=== PATIENT | female | born 1980 | race Caucasian/White ===

== ENCOUNTER 2016-08-17 09:33 | Inpatient (IN) | payer OTHER ==
[~2016-08-17] VITALS: Ht 162.6 cm; Wt 84.4 kg
[2016-08-17 10:41] VITALS: BP 139/77
[2016-08-17 11:05] LABS: ABSOLUTE BASOPHIL COUNT 0 /CUMM (0.0-0.2); ABSOLUTE EOSINOPHIL COUNT 0 /CUMM (0.0-0.7); ABSOLUTE GRANULOCYTE CT 6.6 /CUMM (1.4-6.5); ABSOLUTE LYMPH COUNT 1.4 /CUMM (1.2-3.4); ABSOLUTE MONOCYTE COUNT 0.6 /CUMM (0.10-0.60); BASOPHIL % 0.1 % (0.0-2.0); EOSINOPHIL % 0.5 % (0-5); GRANULOCYTE % 77.1 % (42.2-75.2); HEMATOCRIT 34.7 % (37-47); MEAN CORPUSCULAR HGB CONC 33.8 G/DL (33.0-37.0); MEAN CORPUSCULAR VOLUME 76.9 FL (81.0-99.0); MEAN PLATELET VOLUME 8.1 FL (7.4-10.4); PLATELET COUNT 224 /CUMM (130-400); RBC DISTRIBUTION WIDTH 15.9 % (11.5-14.5); RED BLOOD CELL CT 4.52 /CUMM (4.20-5.40); WHITE BLOOD CELL COUNT 8.6 /CUMM (4.8-10.8)
[2016-08-18 01:18] LABS: ABSOLUTE BASOPHIL COUNT 0 /CUMM (0.0-0.2); ABSOLUTE EOSINOPHIL COUNT 0 /CUMM (0.0-0.7); ABSOLUTE GRANULOCYTE CT 5.5 /CUMM (1.4-6.5); ABSOLUTE LYMPH COUNT 1.8 /CUMM (1.2-3.4); ABSOLUTE MONOCYTE COUNT 0.6 /CUMM (0.10-0.60); BASOPHIL % 0.4 % (0.0-2.0); EOSINOPHIL % 0.5 % (0-5); GRANULOCYTE % 69.3 % (42.2-75.2); HEMATOCRIT 36.1 % (37-47); MEAN CORPUSCULAR HGB 25.4 PG (27.0-31.0); MEAN CORPUSCULAR HGB CONC 32.9 G/DL (33.0-37.0); MEAN CORPUSCULAR VOLUME 77.2 FL (81.0-99.0); PLATELET COUNT 231 /CUMM (130-400); RBC DISTRIBUTION WIDTH 15.8 % (11.5-14.5); RED BLOOD CELL CT 4.68 /CUMM (4.20-5.40)
--- NOTE | 2016-08-18 10:29 | History & Physical ---
General Information and HPI MD Statement: I have seen and personally examined AMIE LAWSON and documented this H&P. The patient is a 35 year old female at [37] weeks and [6] days gestation who presented with a chief complaint of [PROM]. 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 EENTM: Reports: no symptoms. Cardiovascular: Reports: no symptoms. Respiratory: Reports: no symptoms. GI: Reports: no symptoms. Genitourinary: Reports: no symptoms. Musculoskeletal: Reports: no symptoms. Skin: Reports: no symptoms. Neurological/Psychological: Reports: no symptoms. Hematologic/Endocrine: Reports: no symptoms. Immunologic/Allergic: Reports: no symptoms. All Other Systems: Reviewed and Negative Exam & Diagnostic Data Last 24 Hrs of Vital Signs/I&O Vital Signs Date Time Temp Pulse Resp B/P B/P Pulse O2 O2 Flow FiO2 Mean Ox Delivery Rate 08/17 1041 139/77 Obstetric Exam Wgt Gained During : 35 Pelvimetry: GYNECOID Dilation (cm): 0 Effacement (%): 0 Station: -2 Membranes: SROM Fluid: clear Fundal Height (cm): 37 Multiple Gestation? No Contractions: NONE Infant #1 - FHR Baseline: 140 Category: 1 Estimated Weight: 6.5 Presentation: CEPHALIC Patient for Induction? Yes Labs Blood Type & Rh: AB POS Antibody Screen: NEG Hct/Hgb & Platelets #1: / Hct/Hgb & Platelets #2: / Rubella: IMM VDRL #1: NR VDRL #2: NR HbsAg: NEG HIV #1: NEG HIV #2 NEG 1 Hr P 3 Hr P/170/131/101 Group B Strep: NEG Initial Ultrasound: WNL Anatomy Ultrasound: WNL Ultrasound for EFW: 6 Genetic Testing: NEG Assessment/Plan Assessment/Plan: PROM AT 37 WEEKS EXPECTANT MGMT As Ranked By This Provider Problem List: 1. Core Measures/Miscellaneous Venous Thromboembolism VTE Risk Factors: / VTE Contraindications: No Contraindications VTE Diagnosis: No Beta Serafin Is Beta Serafin a Home Med? No Antibiotics Is Patient on Antibiotics? No
--- NOTE | 2016-08-18 19:45 | Labor & Delivery Summary ---
Delivery Summary Vaginal Delivery: Vaginal: vertex Episiotomy/Lacerations: Episiotomy/Lacerations: EPIS Type: RML Repair: 3-0 INT Anesthesia: EPI Placenta: Placenta: normal, 3 vessel, nuchal cord (x_) Baby's Weight: P STS Apgars - 1 Min: 9 Apgars - 5 Min: 9
[2016-08-19 08:33] LABS: ABSOLUTE BASOPHIL COUNT 0.1 /CUMM (0.0-0.2); ABSOLUTE EOSINOPHIL COUNT 0 /CUMM (0.0-0.7); ABSOLUTE GRANULOCYTE CT 13.1 /CUMM (1.4-6.5); ABSOLUTE LYMPH COUNT 1.9 /CUMM (1.2-3.4); BASOPHIL % 0.3 % (0.0-2.0); EOSINOPHIL % 0.1 % (0-5); GRANULOCYTE % 81.7 % (42.2-75.2); MEAN CORPUSCULAR HGB 25.7 PG (27.0-31.0); MEAN CORPUSCULAR HGB CONC 32.8 G/DL (33.0-37.0); MEAN CORPUSCULAR VOLUME 78.5 FL (81.0-99.0); MEAN PLATELET VOLUME 9.1 FL (7.4-10.4); PLATELET COUNT 194 /CUMM (130-400); RED BLOOD CELL CT 3.81 /CUMM (4.20-5.40)
[2016-08-19 10:35] LABS: HEMATOCRIT 29.9 % (37-47); WHITE BLOOD CELL COUNT 16.1 /CUMM (4.8-10.8)
[2016-08-19 18:20] LABS: ABSOLUTE BASOPHIL COUNT 0 /CUMM (0.0-0.2); ABSOLUTE EOSINOPHIL COUNT 0.1 /CUMM (0.0-0.7); ABSOLUTE GRANULOCYTE CT 10.8 /CUMM (1.4-6.5); ABSOLUTE MONOCYTE COUNT 0.9 /CUMM (0.10-0.60); BASOPHIL % 0.2 % (0.0-2.0); EOSINOPHIL % 0.4 % (0-5); GRANULOCYTE % 78.4 % (42.2-75.2); HEMATOCRIT 29.9 % (37-47); MEAN CORPUSCULAR HGB 25.6 PG (27.0-31.0); MEAN CORPUSCULAR HGB CONC 32.9 G/DL (33.0-37.0); MEAN CORPUSCULAR VOLUME 77.8 FL (81.0-99.0); MEAN PLATELET VOLUME 8.1 FL (7.4-10.4); PLATELET COUNT 226 /CUMM (130-400); RBC DISTRIBUTION WIDTH 16.2 % (11.5-14.5); RED BLOOD CELL CT 3.84 /CUMM (4.20-5.40); WHITE BLOOD CELL COUNT 13.8 /CUMM (4.8-10.8)
[2016-08-19] MEDS ORDERED: IBUPROFEN800 M1 PO (18:40)
[2016-08-19] MEDS ORDERED: DOCUSATE SODIU100 M3 PO (18:40)
[2016-08-19] MEDS ORDERED: TRAMADOL HCL50 M1 PO (18:40)
== END 2016-08-20 09:55 | DRG 775 ==
LOC: CBCO 09:33 → GNO 10:08
PROVIDERS: Specialist; ADMIT Obstetrics & Gynecology
PROC: 0W8NXZZ Division of Female Perineum, External Approach (ICD-10-PCS; principal; 2016-08-18)
PROC: 10E0XZZ Delivery of Products of Conception, External Approach (ICD-10-PCS; principal; 2016-08-18)
DX: O42.02 Full-term premature rupture of membranes, onset of labor within 24 hours of rupture (principal); O99.89 Other specified diseases and conditions complicating pregnancy, childbirth and the puerperium; O69.81X0 Labor and delivery complicated by cord around neck, without compression, not applicable or unspecified; O99.334 Smoking (tobacco) complicating childbirth; M45.9 Ankylosing spondylitis of unspecified sites in spine; Z3A.37 37 weeks gestation of pregnancy; Z37.0 Single live birth
CPT/HCPCS: GNOP; GNOS; 80307; 81001; 82570; 84112; 87086; J7120

== ENCOUNTER 2017-10-12 13:37 | Emergency (ER) | payer OTHER ==
[~2017-10-12] VITALS: Ht 165.1 cm; Wt 77.1 kg
[~2017-10-12 13:37] MED LIST: DOCUSATE SODIU100 M3 PO; IBUPROFEN800 M1 PO; TRAMADOL HCL50 M1 PO
[2017-10-12 14:20] LABS: ABSOLUTE BASOPHIL COUNT 0 /CUMM (0.0-0.2); ABSOLUTE EOSINOPHIL COUNT 0.1 /CUMM (0.0-0.7); ABSOLUTE GRANULOCYTE CT 8.6 /CUMM (1.4-6.5); ABSOLUTE LYMPH COUNT 1.6 /CUMM (1.2-3.4); ABSOLUTE MONOCYTE COUNT 0.3 /CUMM (0.10-0.60); BASOPHIL % 0 % (0.0-2.0); EOSINOPHIL % 1.3 % (0-5); HEMATOCRIT 30.9 % (37-47); MEAN CORPUSCULAR HGB 26.4 PG (27.0-31.0); MEAN CORPUSCULAR HGB CONC 33.4 G/DL (33.0-37.0); MEAN CORPUSCULAR VOLUME 78.8 FL (81.0-99.0); MEAN PLATELET VOLUME 7.4 FL (7.4-10.4); PLATELET COUNT 414 /CUMM (130-400); RBC DISTRIBUTION WIDTH 14.1 % (11.5-14.5); RED BLOOD CELL CT 3.91 /CUMM (4.20-5.40); WHITE BLOOD CELL COUNT 10.6 /CUMM (4.8-10.8)
[2017-10-12 14:59] LABS: PT 11.5 SEC (9.4-12.5); PTT 31 SEC (25-37)
--- NOTE | 2017-10-12 15:37 | ULTRASOUND REPORT ---
EXAMINATION: ULTRASOUND PELVIC, COMPLETE CLINICAL INFORMATION: Diffuse pain. Recent . Recent heavy vaginal bleeding. Concern for retained products. COMPARISON: Transvaginal ultrasound 01/23/2009. TECHNIQUE: Transvaginal: Used to better visualize pelvic structures Transabdominal: Not adequate for visualization. Spectral Doppler and color Doppler exam was utilized. FINDINGS: UTERUS: There is no evidence of retained products of conception. No vascular lesion within the endometrial cavity. No fluid collection in the endometrial cavity. The endometrial cavity measures 1.6 cm transverse. The cervix does appear to be open containing complex fluid, probably hemorrhage, which does not demonstrate vascularity on color Doppler. The uterus measures 7.3 x 5 x 5.4 cm. The cervical length is 2.7 cm. ADNEXA: Ovarian vascularity: Doppler demonstrates both arterial and venous vascular flow in the right and left ovary. No evidence of ovarian torsion. Right Ovary: 2.9 x 1.7 x 2.3 cm. Volume 4.8 mL. There is a thick-walled follicle in the right ovary measuring 1.2 x 1.3 x 0.9 cm which does not demonstrate increased vascularity on Doppler. Additional multiple thin-walled cysts in the ovary present. Left Ovary: 4.4 x 2.3 x 2.8 cm. Volume 14.9 mL. There are anechoic follicle/cysts within the ovary. Largest 2 measure 1.9 x 1.7 x 1.9 cm and 2.1 x 1 x 2.2 cm. Cul-de-sac: Small amount of fluid. IMPRESSION: 1. No evidence of retained products of conception. There is complex fluid, hemorrhage, within the endocervical canal. The cervix appears open. 2. Multiple follicles within the right and left ovaries.
[2017-10-12] MEDS ORDERED: IBUPROFEN200 M3 PO (17:07)
[2017-10-12] MEDS ORDERED: ACETAMINOPHEN500 M4 PO (17:07)
[2017-10-12] MEDS ORDERED: HAIR, SKIN & N1 EACH PO (17:09)
[2017-10-12] MEDS ORDERED: PHENERGAN12.5 M2 RC (17:45)
[2017-10-12] MEDS ORDERED: GIANVI 3 MG-0.1 EACH PO (17:45)
--- NOTE | 2017-10-12 17:53 | ED GENERAL ADULT ---
History of Present Illness General Chief Complaint: Female Urogenital Problems Stated Complaint: VAGINAL BLEEDING, S/P MISCARRIAGE Source: patient Exam Limitations: no limitations Vital Signs & Intake/Output Vital Signs & Intake/Output Vital Signs Date Time Temp Pulse Resp B/P B/P Pulse O2 O2 Flow FiO2 Mean Ox Delivery Rate 10/12 1711 98 Room Air 10/12 1348 98.2 99 18 154/96 98 Room Air Allergies Coded Allergies: Penicillins (Severe, HIVES 08/17/16) Reconcile Medications Acetaminophen 500 MG TABLET 2 TAB PO PRN PAIN (Reported) Ethinyl Estradiol/Drospirenone (Gianvi 3 MG-0.02 MG Tablet) 0.02 MG-3 MG (24) TABLET 1 TAB PO TAPER heavy menstrual bleeding 5 tabs first day. 4 tabs second day. 3 tabs third day. 2 tabs fourth day. 1 tab for 8 days. Ibuprofen 200 MG CAPSULE 2-4 CAP PO PRN PAIN (Reported) Multivitamin With Minerals (Hair, Skin & Nails) 1 EACH TABLET 1 TAB PO DAILY SUPPLEMENT (Reported) Promethazine HCl (Phenergan) 12.5 MG SUPP.RECT 1 SUP RC Q4-6 PRN Nausea and vomiting Triage Note: 36 YO FEMALE TO [facility] FOR VAGINAL BLEEDING. STATES HAD AN AT 7.5 WEEKS . STATES IT HAS BEEN 2 WEEKS SINCE TAKING THE PILLS. SATES SINCE LAST PM SHE HAS BEEN HAVING HEAVY VAGINAL BLEEDING WITH CLOTS. STATES WAS SOAKING THROUGH A PAD AND 1 TAMPON QH. DRIER OPERATOR HELPER IS DR SMITH. C/O FEELING WEAKNESS, C/O LOWER ABD CRAMPING/PAIN. Triage Nurses Notes Reviewed? yes : No Patient currently breastfeeds: No HPI: 36-year-old female presents with heavy vaginal bleeding for 3 days. Underwent 7 weeks ago with misoprostol. [facility] and had retained products of conception and was started on another round of medication. Over the past 3 days she has had heavy menstrual periods needing to change pads every 1-2 hours. Associated symptoms of feeling weak with lower abdominal cramping. DRIER OPERATOR HELPER is DR SMITH. Past History Travel History Traveled to [place] past 21 day No Medical History Any Pertinent Medical History? see below for history Neurological: NONE EENT: NONE Cardiovascular: NONE Respiratory: NONE Gastrointestinal: NONE Hepatic: NONE Renal: NONE Musculoskeletal: NONE Psychiatric: NONE Endocrine: NONE Blood Disorders: NONE Cancer(s): NONE DRIER OPERATOR HELPER/Reproductive: NONE Surgical History Surgical History: none Psychosocial History What is your primary language Haitian Tobacco Use: Never used Family History Hx Contributory? Yes Review of Systems Review of Systems Constitutional: Reports: no symptoms, weakness. EENTM: Reports: no symptoms. Respiratory: Reports: no symptoms. Cardiovascular: Reports: no symptoms. GI: Reports: no symptoms. Genitourinary: Reports: no symptoms, see HPI. Musculoskeletal: Reports: no symptoms. Skin: Reports: no symptoms. Neurological/Psychological: Reports: no symptoms. Hematologic/Endocrine: Reports: no symptoms. Immunologic/Allergic: Reports: no symptoms. All Other Systems: Reviewed and Negative Physical Exam Physical Exam General Appearance: well developed/nourished, no apparent distress Respiratory: normal breath sounds, lungs clear Cardiovascular: regular rate/rhythm Gastrointestinal: soft, non-tender Back: normal inspection Core Measures ACS in differential dx? No CVA/TIA Diagnosis: No Sepsis Present: No Sepsis Focused Exam Completed? No Progress Differential Diagnoses I considered the following diagnoses in my evaluation of the patient: Retained products of conception, menorrhagia, metromenorrhagia. Plan of Care: Orders Procedure Date/time Status Add-on Test (ER Only) 10/12 1547 Active HUMAN BETA HCG TITRE 10/12 1357 Complete MISTAKE 10/12 1353 Active PARTIAL THROMBOPLASTIN TIME 10/12 1353 Complete PROTHROMBIN TIME 10/12 1353 Complete COMPREHENSIVE METABOLIC PANEL 10/12 1353 Complete CBC WITHOUT DIFFERENTIAL 10/12 1353 Complete TYPE & SCREEN (NOT X-MATCH) 10/12 1353 Complete Laboratory Tests 10/12/17 1357: Anion Gap 7, Estimated GFR > 60, BUN/Creatinine Ratio 14.3, Glucose 97, Calcium 9.4, Total Bilirubin 0.3, AST 16, ALT 24, Alkaline Phosphatase 59, Total Protein 7.0, Albumin 4.2, Globulin 2.8, Albumin/Globulin Ratio 1.5, Beta HCG, Quant 82.4 , PT 11.5, INR 1.05, APTT 31, CBC w Diff NO MAN DIFF REQ, RBC 3.91 L, MCV 78.8 L, MCH 26.4 L, MCHC 33.4, RDW 14.1, MPV 7.4, Gran % 81.0 H, Lymphocytes % 15.2 L, Monocytes % 2.5, Eosinophils % 1.3, Basophils % 0, Absolute Granulocytes 8.6 H, Absolute Lymphocytes 1.6, Absolute Monocytes 0.3, Absolute Eosinophils 0.1, Absolute Basophils 0 Initial ED EKG: none Departure Departure Disposition: HOME OR SELF CARE Condition: Stable Clinical Impression Primary Impression: Menstrual bleeding problem Referrals: Brianna Howard APRN (PCP/Family) Departure Forms: Customer Survey General Discharge Information Prescriptions: Current Visit Scripts Ethinyl Estradiol/Drospirenone (Gianvi 3 MG-0.02 MG Tablet) 1 TAB PO TAPER #22 TAB 5 tabs first day. 4 tabs second day. 3 tabs third day. 2 tabs fourth day. 1 tab for 8 days. Promethazine HCl (Phenergan) 1 SUP RC Q4-6 PRN Nausea and vomiting #30 SUP Critical Care Note Critical Care Note Critical Care Time: non-applicable
[2017-10-12 18:04] VITALS: BP 137/92
== END 2017-10-12 18:12 ==
LOC: ERH 13:37
PROVIDERS: Physician Assistant Medical
DX: N92.0 Excessive and frequent menstruation with regular cycle (principal); R10.30 Lower abdominal pain, unspecified